=== PATIENT | male | born 1975 ===

== ENCOUNTER 2017-10-21 16:20 | Emergency (ER) | payer SELFPAY ==
[~2017-10-21] VITALS: Ht 165.1 cm; Wt 73.0 kg
[2017-10-21] MEDS ORDERED: IBUPROFEN 600MG TABLET PO ONE (19:30)
[2017-10-21 19:42] VITALS: BP 135/95
== END 2017-10-21 19:46 | disposition home or self-care (01) ==
LOC: ER 16:20
DX: S39.012A Strain of muscle, fascia and tendon of lower back, initial encounter (principal); Z88.9 Allergy status to unspecified drugs, medicaments and biological substances; V89.2XXA Person injured in unspecified motor-vehicle accident, traffic, initial encounter; Y93.89 Activity, other specified; Y92.89 Other specified places as the place of occurrence of the external cause; Y99.8 Other external cause status
CPT/HCPCS: 99283